=== PATIENT | male | born 1955 | race Caucasian/White ===

== ENCOUNTER → 2019-09-19 | Outpatient (CLI) | payer OTHER | LOC: CAT 07:38 | DX: Z13.6 Encounter for screening for cardiovascular disorders (principal); E78.00 Pure hypercholesterolemia, unspecified; I25.10 Atherosclerotic heart disease of native coronary artery without angina pectoris ==

== ENCOUNTER → 2019-09-19 | Outpatient (CLI) | payer BC | LOC: ULTRA 07:33 | DX: R10.84 Generalized abdominal pain (principal); B19.20 Unspecified viral hepatitis C without hepatic coma ==

== ENCOUNTER → 2021-07-10 | Outpatient (CLI) | payer BC | LOC: MRI 09:14 | PROVIDERS: ATTEND Family Medicine | DX: R42 Dizziness and giddiness (principal) ==

== ENCOUNTER → 2021-07-24 | Outpatient (CLI) | payer BC | LOC: CAT 07-17 07:50 | PROVIDERS: ATTEND Family Medicine | DX: J98.4 Other disorders of lung (principal); F17.290 Nicotine dependence, other tobacco product, uncomplicated; I25.10 Atherosclerotic heart disease of native coronary artery without angina pectoris; I70.0 Atherosclerosis of aorta; Z12.2 Encounter for screening for malignant neoplasm of respiratory organs ==

== ENCOUNTER → 2021-11-04 | Outpatient (CLI) | payer BC ==
[~2021-11-04] VITALS: Ht 182.9 cm; Wt 74.8 kg
[~2021-11-04] MED LIST: BYSTOLIC 5 MG5 MG PO; PROTONIX40 M2 PO; VITAMIN D325 MC3 PO; ZESTRIL10 MG PO
--- NOTE | 2021-11-06 09:08 | PATH ---
[facility] [place] [address] PATHOLOGY RPT PROCEDURE Name: JOSÉ MIGUEL WESTON Room #: REG MORAIMA Oliva.#: [id number] Admission: 11/04/21 Date of : 57 Discharge: Report #: [id number] Path Case #: [id number] [facility] Accession Number: [id number] . 01 Material submitted: . PART A: stomach - ANTRUM BIOPSY R/O H. PYLORI PART B: esophagus, E-G Junction - GE JUNCTION BIOPSY R/O BOUCHER'S . 01 Clinical history: . ESOPHAGOGASTRODUODENOSCOPY BILIARY DYKINESIA, BOUCHER'S ESOPHAGUS HX BOUCHER'S, LINEAR GASTRITIS . 02 Diagnosis: A. Gastric antrum, biopsy: - Gastric antral mucosa with features of mild reactive gastropathy. - An H. pylori immunohistochemical stain is negative for H. pylori-like organism. . B. GE junction, biopsy: - Squamous and glandular foveolar type mucosa without significant histopathological abnormality. - Negative for intestinal metaplasia or goblet cell metaplasia. (ANK:folr; 11/05/2021) S 11/05/2021 1058 Local . 02 Electronically signed: . Marcelina Munoz MD, Pathologist NPI- [id number] . 01 Gross description: . A. The specimen is received in formalin, labeled "José Miguel Weston, antrum BX, rule out H. pylori". Received is a single segment of pale solano tissue measuring 0.4 cm in maximum dimensions. The specimen is entirely submitted in cassette A1. . B. The specimen is received in formalin, labeled "José Miguel Weston, GE junction BX, rule out Boucher's". Received are multiple fragments of pale solano tissue ranging in size from 0.2-0.4 cm in maximum dimensions. The specimen is entirely submitted in cassette B1. ([facility]; 11/04/2021) NRI/NRI 11/04/2021 2157 Local . 02 Pathologist provided ICD-10: K82.8, K22.70, Z87.19 . 02 [place] [address] PATHOLOGY RPT PROCEDURE Name: JOSÉ MIGUEL WESTON Room #: REG CLCristina Pablo#: [id number] Admission: 11/04/21 Date of : 57 Discharge: Report #: [id number] Path Case #: [id number] Specimen Comment: A courtesy copy of this report has been sent to [phone], [phone] Specimen Comment: [id number] Specimen Comment: Report sent to / DR NIELSEN Specimen Comment: A duplicate report has been generated due to demographic updates. Performed at: [address], [place] [id number] MD Keith Joaquin MD Phone: [phone] Performed at: [address] [id number] MD Cyndi Hernandez MD Phone: [phone]
== END | disposition home or self-care (01) ==
LOC: GI 07:38
PROVIDERS: ATTEND Surgery
DX: R10.9 Unspecified abdominal pain (principal); K31.9 Disease of stomach and duodenum, unspecified; K29.70 Gastritis, unspecified, without bleeding; K44.9 Diaphragmatic hernia without obstruction or gangrene; I10 Essential (primary) hypertension; F17.210 Nicotine dependence, cigarettes, uncomplicated; F41.9 Anxiety disorder, unspecified; Z98.890 Other specified postprocedural states; Z79.899 Other long term (current) drug therapy

== ENCOUNTER → 2021-12-14 | Outpatient (CLI) | payer BC | LOC: RAD 12:53 | PROVIDERS: ATTEND Internal Medicine | DX: R06.00 Dyspnea, unspecified (principal) ==